=== PATIENT | female | born 1945 | race Caucasian/White ===

== ENCOUNTER 2016-10-10 11:00 | Emergency (ER) | payer MEDICARE, OTHER ==
[~2016-10-10 11:00] MED LIST: AZO STANDARD95 MG PO; BENAZEPRIL HCL20 MG PO; CALCIUM600 MG PO; CO Q-10100 MG PO; CRESTOR5 MG PO; GLUCOPHAGE1000 MG PO; LOPRESSOR50 MG PO; MAGNESIUM250 M1 PO; MULTAQ400 MG PO; NEURONTIN600 MG PO; NORCO 5-325 TA1 EACH PO; PROTONIX 40MG T40 MG PO; VITAMIN D1000 UNI1 PO; XARELTO20 MG PO
== END 2016-10-10 14:16 | disposition home or self-care (01) ==
LOC: FER 11:00
DX: S93.402A Sprain of unspecified ligament of left ankle, initial encounter (principal); S93.602A Unspecified sprain of left foot, initial encounter; M25.562 Pain in left knee; E11.9 Type 2 diabetes mellitus without complications; I48.91 Unspecified atrial fibrillation; Z88.5 Allergy status to narcotic agent; Z88.8 Allergy status to other drugs, medicaments and biological substances; Z91.041 Radiographic dye allergy status; W01.0XXA Fall on same level from slipping, tripping and stumbling without subsequent striking against object, initial encounter; Y92.009 Unspecified place in unspecified non-institutional (private) residence as the place of occurrence of the external cause
CPT/HCPCS: 73564; 73610; 73630; J1885

== ENCOUNTER 2022-01-01 18:50 | Emergency (ER) | payer MEDICARE, OTHER ==
[~2022-01-01 18:50] MED LIST changes: +ARTHRITIS PAIN50 GM TOP; +ASPIRIN EC81 MG PO; +CARAFATE1 G1 PO; +DICLOFENAC SOD100 G1 TOP; +DILTIAZEM TD; +FEOSOL325 MG PO; +GLUCOTROL XL5 MG PO; +LASIX20 MG PO; +LIPITOR 10MG TA10 MG PO; +NORCO 5-325 TA1 EAC1 PO; +NORCO 5/3251 EACH PO; +PROBIOTIC1 EAC1 PO; +TRIAMCINOLONE A15 GM TD; +VOLTAREN100 GM TOP; +ZANTAC150 MG PO
[2022-01-01 19:29] LABS: BASOPHIL 0.5 % (0-2); EOSINOPHIL 2.9 % (0-7); HCT 37.1 % (37.0-47.0); HGB 12.3 g/dl (12.5-16.0); LYMPHOCYTE 26.9 % (15-48); MCH 30.3 pg (25.0-31.0); MCHC 33.2 g/dL (32.0-36.0); MCV 91.4 fL (78.0-100.0); MONOCYTE 6.3 % (0-12); MPV 9.3 fL (6.0-9.5); NEUTROPHIL 62.8 % (41-80); NRBC 0; PLT 241 K/uL (150-400); RBC 4.06 M/uL (4.20-5.40); RDW 13.5 % (11.5-14.0); WBC 8.3 K/uL (4.0-10.5)
[2022-01-01 19:50] LABS: ALBUMIN 3.6 g/dL (3.4-5.0); BILIRUBIN - TOTAL 0.4 mg/dL (0.2-1.0); BUN/CREAT RATIO (CALC) 22.7 RATIO; CREATININE 0.66 mg/dL (0.51-0.95); GLOBULIN (CALCULATION) 3.3 g/dL; POTASSIUM 4.1 mmol/L (3.5-5.1); TOTAL PROTEIN 6.9 g/dL (6.4-8.2)
[2022-01-02] MEDS ORDERED: NORCO 5-325 TA1 EACH PO ×2 (08:11→14:22)
== END 2022-01-01 22:28 | disposition home or self-care (01) ==
LOC: FER 18:50
PROVIDERS: Emergency Medicine
DX: I48.91 Unspecified atrial fibrillation (principal); E11.9 Type 2 diabetes mellitus without complications; Z88.5 Allergy status to narcotic agent; Z88.8 Allergy status to other drugs, medicaments and biological substances; Z91.041 Radiographic dye allergy status; Z79.01 Long term (current) use of anticoagulants
CPT/HCPCS: 36415; 71045; 80053; 83735; 83880; 84145; 84484; 85025; 93005

== ENCOUNTER 2022-02-18 15:57 | Emergency (ER) | payer MEDICARE, OTHER ==
[2022-02-18 16:52] LABS: BASOPHIL 0.4 % (0-2); EOSINOPHIL 2.1 % (0-7); HCT 35.8 % (37.0-47.0); HGB 11.9 g/dl (12.5-16.0); LYMPHOCYTE 23.3 % (15-48); MCH 30.1 pg (25.0-31.0); MCHC 33.2 g/dL (32.0-36.0); MCV 90.6 fL (78.0-100.0); MONOCYTE 6.2 % (0-12); MPV 9.3 fL (6.0-9.5); NEUTROPHIL 67.9 % (41-80); NRBC 0; PLT 238 K/uL (150-400); RBC 3.95 M/uL (4.20-5.40)
[2022-02-18 17:06] LABS: BUN/CREAT RATIO (CALC) 21.1 RATIO; CREATININE 0.57 mg/dL (0.51-0.95)
== END 2022-02-18 18:18 | disposition home or self-care (01) ==
LOC: FER 15:57
PROVIDERS: Emergency Medicine
DX: U07.1 COVID-19 (principal); I10 Essential (primary) hypertension; Z88.5 Allergy status to narcotic agent; Z88.8 Allergy status to other drugs, medicaments and biological substances
CPT/HCPCS: 36415; 70450; 80048; 85025

== ENCOUNTER 2022-03-27 22:31 | Emergency (ER) | payer MEDICARE, OTHER ==
[2022-03-27 23:32] LABS: BILIRUBIN NEGATIVE (NEGATIVE); BLOOD NEGATIVE Ery/uL (NEGATIVE); CLARITY CLEAR (CLEAR); COLOR YELLOW (YELLOW); GLUCOSE (U) NORMAL (NORMAL); LEUKOCYTES 1+ Leu/uL (NEGATIVE); NITRITE NEGATIVE (NEGATIVE); PROTEIN NEGATIVE (NEGATIVE); UROBILINOGEN 0.2 mg/dL (0.2-1.0); pH 7.5 (5.0-9.0)
[2022-03-27 23:48] LABS: URINARY RBC RARE
[2022-03-27 23:49] LABS: BACTERIA TRACE; SQUAMOUS EPITHELIAL CELLS RARE; TRANSITIONAL EPITHELIAL CELLS RARE
[2022-03-28] MEDS ORDERED: DIFLUCAN 100MG100 MG PO (02:49)
[2022-03-28] MEDS ORDERED: ONDANSETRON ODT4 MG PO (02:49)
[2022-03-28] MEDS ORDERED: BACTRIM DS TAB1 EACH PO (02:49)
== END 2022-03-28 02:58 | disposition home or self-care (01) ==
LOC: FER 22:31
PROVIDERS: Emergency Medicine
DX: N39.0 Urinary tract infection, site not specified (principal); R31.9 Hematuria, unspecified; I10 Essential (primary) hypertension; E11.9 Type 2 diabetes mellitus without complications; Z88.8 Allergy status to other drugs, medicaments and biological substances; Z88.5 Allergy status to narcotic agent
CPT/HCPCS: 81001; 99283; Q0162